=== PATIENT | female | born 1960 | race African-American/Black ===

== ENCOUNTER 2019-11-07 09:04 | Emergency (ER) | payer SELFPAY ==
[2019-11-07] MEDS ORDERED: Acetaminophen TAB* 325 MG PO ONE (09:21)
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
[2019-11-07 12:56] VITALS: BP 170/95
== END 2019-11-07 11:00 | disposition home or self-care (01) ==
LOC: ED 09:04
DX: S16.1XXA Strain of muscle, fascia and tendon at neck level, initial encounter (principal); S39.012A Strain of muscle, fascia and tendon of lower back, initial encounter; M54.9 Dorsalgia, unspecified; V49.3XXA Car occupant (driver) (passenger) injured in unspecified nontraffic accident, initial encounter; Y92.488 Other paved roadways as the place of occurrence of the external cause; I10 Essential (primary) hypertension; Z79.899 Other long term (current) drug therapy
CPT/HCPCS: 71046; 72040; 72110; 99282; A9270-GY